=== PATIENT | female | born 1945 | race Caucasian/White ===

== ENCOUNTER 2017-06-17 06:09 | Emergency (ER) | payer OTHER, BC ==
[2017-06-17 06:17] VITALS: TEMP 98.2
[2017-06-17] MEDS ORDERED: NS 1,000 ML IV ONE (06:27)
[2017-06-17 06:33] LABS: PLATELET COUNT 227 10^3/uL (150-400)
--- NOTE | 2017-06-17 07:03 | EDPHY ---
H & P Stated Complaint: L FLANK PAIN Source: Patient, EMS Exam Limitations: No limitations - Personal History Current Tetanus/Diphtheria Vaccine: Unsure Current Tetanus Diphtheria and Acellular Pertussis (TDAP): Unsure - Medical/Surgical History Hx Asthma: No Hx Chronic Respiratory Disease: No Hx Diabetes: No Hx Cardiac Disease: No Hx Renal Disease: No Hx Cirrhosis: No Hx Alcoholism: No Hx HIV/AIDS: No Hx Splenectomy or Spleen Trauma: No - Social History Smoking Status: Never smoked Time Seen by Provider: 06/17/17 06:13 HPI/ROS: HPI The patient presents with left-sided flank pain that awoke her from sleep about 1 hour prior to presentation. It is achy in nature, does not radiate and initially was severe though is now subsiding. She was able to urinate, however developed nausea and diaphoresis with this. She has no prior history of similar symptoms. She denies any dysuria, hematuria that she is aware of. She is visiting from [place] and staying with a friend. She is brought in by ambulance.. REVIEW OF SYSTEMS Constitutional: No fever, no chills. Eyes: No discharge. ENT: No sore throat. Cardiovascular: No chest pain, no palpitations. Respiratory: No cough, no shortness of breath. Gastrointestinal: See HPI Genitourinary: No hematuria. Musculoskeletal: No back pain. Skin: No rashes. Neurological: No headache. PMHx: History of gallstones Soc Hx: Visiting from out of town, here in [place] for a meditation retreat PHYSICAL General Appearance: Alert, no distress Eyes: Pupils equal and round no pallor or injection ENT, Mouth: Mucous membranes moist Respiratory: There are no retractions, lungs are clear to auscultation Cardiovascular: Regular rate and rhythm Gastrointestinal: Abdomen is soft and non-tender, no masses, bowel sounds normal Back: There is left-sided CVA tenderness Neurological: A&O, moves all extremities Skin: Warm and dry, no rashes Musculoskeletal: Neck is supple non tender Extremities: symmetrical, full range of motion Psychiatric: Patient is oriented X 3, there is no agitation (Riguzzi,Shari) Constitutional: Initial Vital Signs Temperature (C) 36.8 C 06/17/17 06:11 Heart Rate 68 06/17/17 06:11 Respiratory Rate 16 06/17/17 06:11 Blood Pressure 180/93 H 06/17/17 06:11 O2 Sat (%) 93 06/17/17 06:11 O2 Delivery Mode Room Air Allergies/Adverse Reactions: No Known Allergies Allergy (Unverified 06/17/17 06:35) Home Medications: Medication Instructions Recorded Hydrocodone/APAP 5/325 [[place] 1 - 2 tab PO Q6H PRN #15 tab 06/17/17 5/325 (*)] Ondansetron Odt [Zofran Odt 4 mg 4 mg PO Q4 PRN #10 tab 06/17/17 (*)] Tamsulosin HCl 0.4 mg PO DAILY #10 cap 06/17/17 Medical Decision Making Differential Diagnosis: 71-year-old female brought in by ambulance for left-sided flank pain associated with nausea and diaphoresis which awoke her from sleep. On exam, she is hypertensive, otherwise well appearing. She does have left-sided CVA tenderness. Differential diagnosis includes ureterolithiasis, pyelonephritis, less likely AAA or muscle spasm. In the emergency department, IV line was established and patient was given IV fluids for presumed volume depletion. Labs were checked and did reveal hematuria and an elevated BUN. Because of the hematuria, I am suspicious for ureterolithiasis. I a have ordered a CT scan of the patient's abdomen pelvis to be performed. At change of shift at 7:00 a.m., the case is signed out to the oncoming provider Dr. Campuzano pending the patient's CT scan. I anticipate she will be able to discharge home if her pain is very minimal at this time. (Shari Anne) Other Provider: [address] Hagen pending CT scan of the abdomen pelvis. [address] Anne. Patient has a 10 mm left distal ureteral stone at the level S1 with moderate hydronephrosis. Discussed with the patient. She will follow up with Urology here tomorrow. I have started her on tamsulosin. She does not want strong narcotics. Will start her on hydrocodone while continuing to take ibuprofen. Return for worsening. (Juan Carlos Campuzano) - Data Points Laboratory Results: Laboratory Results 06/17/17 06:15 06/17/17 06:15 06/17/17 06/17/17 06/17/17 06:15 06:15 06:15 WBC 6.43 10^3/uL 10^3/uL (3.80-9.50) RBC 4.32 10^6/uL 10^6/uL (4.18-5.33) Hgb 13.4 g/dL g/dL (12.6-16.3) Hct 39.9 % % (38.0-47.0) MCV 92.4 fL fL (81.5-99.8) MCH 31.0 pg pg (27.9-34.1) MCHC 33.6 g/dL g/dL (32.4-36.7) RDW 13.4 % % (11.5-15.2) Plt Count 227 10^3/uL 10^3/uL (150-400) MPV 9.2 fL fL (8.7-11.7) Neut % (Auto) 44.5 % % (39.3-74.2) Lymph % (Auto) 42.5 % % (15.0-45.0) [place] % (Auto) 7.6 % % (4.5-13.0) Eos % (Auto) 4.0 % % (0.6-7.6) Baso % (Auto) 1.1 % % (0.3-1.7) Nucleat RBC Rel Count 0.0 % % (0.0-0.2) Absolute Neuts (auto) 2.86 10^3/uL 10^3/uL (1.70-6.50) Absolute Lymphs (auto) 2.73 10^3/uL 10^3/uL (1.00-3.00) Absolute Monos (auto) 0.49 10^3/uL 10^3/uL (0.30-0.80) Absolute Eos (auto) 0.26 10^3/uL 10^3/uL (0.03-0.40) Absolute Basos (auto) 0.07 10^3/uL 10^3/uL (0.02-0.10) Absolute Nucleated RBC 0.00 10^3/uL 10^3/uL (0-0.01) Immature Gran % 0.3 % % (0.0-1.1) Immature Gran # 0.02 10^3/uL 10^3/uL (0.00-0.10) Sodium 145 mEq/L H mEq/L (134-144) Potassium 4.0 mEq/L mEq/L (3.5-5.2) Chloride 108 mEq/L mEq/L (97-110) Carbon Dioxide 26 mEq/l mEq/l (22-31) Anion Gap 11 mEq/L mEq/L (8-16) BUN 25 mg/dL H mg/dL (7-23) Creatinine 0.9 mg/dL mg/dL (0.6-1.0) Estimated GFR > 60 Glucose 99 mg/dL mg/dL (70-100) Calcium 9.3 mg/dL mg/dL (8.5-10.4) Urine Color YELLOW Urine Appearance HAZY Urine pH 7.0 (5.0-7.5) Ur Specific [place] 1.015 (1.002-1.030) Urine Protein 1+ H (NEGATIVE) Urine Ketones NEGATIVE (NEGATIVE) Urine Blood 3+ H (NEGATIVE) Urine Nitrate NEGATIVE (NEGATIVE) Urine Bilirubin NEGATIVE (NEGATIVE) Urine Urobilinogen NEGATIVE EU EU (0.2-1.0) Ur Leukocyte Esterase NEGATIVE (NEGATIVE) Urine RBC 50-182 /hpf H /hpf (0-3) Urine WBC 5-10 /hpf H /hpf (0-3) Ur Epithelial Cells TRACE /lpf /lpf (NONE-1+) Urine Mucus TRACE /lpf /lpf (NONE-1+) Urine Glucose NEGATIVE (NEGATIVE) Medications Given: Discontinued Medications Sodium Chloride (Ns) 1,000 mls @ 0 mls/hr IV ONCE ONE; Wide Open PRN Reason: Protocol Stop: 06/17/17 06:28 Last Admin: 06/17/17 06:34 Dose: 1,000 mls Departure - Departure Disposition: Home, Routine, Self-Care Clinical Impression: Calculus of left kidney Condition: Good Instructions: Renal Colic (ED) Additional Instructions: Please make sure to drink plenty of fluids. You should take ibuprofen 600 mg every 8 hours as needed for pain. If the pain is more severe, you can take the pain medication I have provided you with. You can also take Zofran as needed for nausea. You should return to the emergency department if your worse in any way. Otherwise, you can follow up with a urologist at home. I have given you information for a local urologist if you would like to follow up sooner. Referrals: Kishan Machado MD [Medical Doctor] - As per Instructions Prescriptions: Hydrocodone/APAP 5/325 [[place] 5/325 (*)] 1 - 2 tab PO Q6H PRN #15 tab PRN Reason: Pain, Breakthrough Ondansetron Odt [Zofran Odt 4 mg (*)] 4 mg PO Q4 PRN #10 tab PRN Reason: Nausea/Vomiting, Can'T Take Po Tamsulosin HCl 0.4 mg PO DAILY #10 cap
[2017-06-17] MEDS ORDERED: HYDROCOD/APAP 5/325 PREPACK#6 BTL TAKEHOME ONE (07:28)
[2017-06-17] MEDS ORDERED: TAMSULOSIN HCL 0.4 MG CAP PO ONE (07:28)
[2017-06-17 07:52] VITALS: BP 137/89; PULSE 70; RESP 18; O2SAT 94
[2017-06-17] MEDS ORDERED: IBUPROFEN 600 MG TAB PO ONE (07:58)
== END 2017-06-17 08:18 | disposition home or self-care (01) ==
LOC: EDUNIT#
DX: N20.0 Calculus of kidney (principal); E86.9 Volume depletion, unspecified

== ENCOUNTER 2017-06-21 11:42 | Day surgery (SDC) | payer OTHER, BC ==
--- NOTE | 2017-06-21 11:00 | PDHPUP ---
History & Physical Update H&P update statement: This history and physical update is based on an assessment of the patient which was completed after admission or registration (within 24 hours), but prior to the surgery/procedure. H&P update: H&P reviewed & patient examined, no change in patient's condition since H&P completed
--- NOTE | 2017-06-21 11:19 | GHP ---
[f rep st] PREOP HISTORY AND PHYSICAL DATE OF ADMISSION: 06/21/2017 ADMISSION DIAGNOSIS: Left renal/ureteral calculus. This -[id number]-[id number] lady was seen in the em ergency room for evaluation of left flank pain and she was noted to have a 10 mm mid to distal ureter al stone with mild hydronephrosis. She had a creatinine of 0.9 and CBC with white blood count of 6. PAST MEDICAL HISTORY: Kidney stones, previous surgeries, ovarian removal, and hysterectomy. MEDICATIONS: [place], ondansetron, tamsulosin. ALLERGIES: None. FAMILY HISTORY: Positive for diabetes, heart disease, and kidney stones. SOCIAL HISTORY: Mild alcohol consumption. Former smoker. Immunizations up to date. REVIEW OF SYSTEMS: Negative cardiac, respiratory, GI, and endocrine. PHYSICAL EXAM ON ADMISSION: VITALS: Blood pressure in the office 167/87. HEENT: Head, ears, eyes, nose, and throat are normal. CHEST: Clear. HEART: Regular rate and rhythm. ABDOMEN: Normal wit h no organomegaly, rebound, or guarding. She had had a urinalysis that showed large red cells, positive white blood cells, negative nitrite. Reviewed her CAT scan. At the present time, she has a left ureteral calculus. She is admitted for a left ureteroscopic manipulation of the stone, laser lithotripsy. /[id number]/MODL
--- NOTE | 2017-06-21 11:19 | GHP ---
[f rep st] PREOP HISTORY AND PHYSICAL DATE OF ADMISSION: 06/21/2017 ADMISSION DIAGNOSIS: Left renal/ureteral calculus. This -[id number]-tcl lady was seen in the em ergency room for evaluation of left flank pain and she was noted to have a 10 mm mid to distal ureter al stone with mild hydronephrosis. She had a creatinine of 0.9 and CBC with white blood count of 6. PAST MEDICAL HISTORY: Kidney stones, previous surgeries, ovarian removal, and hysterectomy. MEDICATIONS: [place], ondansetron, tamsulosin. ALLERGIES: None. FAMILY HISTORY: Positive for diabetes, heart disease, and kidney stones. SOCIAL HISTORY: Mild alcohol consumption. Former smoker. Immunizations up to date. REVIEW OF SYSTEMS: Negative cardiac, respiratory, GI, and endocrine. PHYSICAL EXAM ON ADMISSION: VITALS: Blood pressure in the office 167/87. HEENT: Head, ears, eyes, nose, and throat are normal. CHEST: Clear. HEART: Regular rate and rhythm. ABDOMEN: Normal wit h no organomegaly, rebound, or guarding. She had had a urinalysis that showed large red cells, positive white blood cells, negative nitrite. Reviewed her CAT scan. At the present time, she has a left ureteral calculus. She is admitted for a left ureteroscopic manipulation of the stone, laser lithotripsy. /[id number]/MODL
[~2017-06-21 11:42] MED LIST: ceFAZolin 2 GM/SWFI 2 GM/20 ML SYR IVP ONE
[2017-06-21] MEDS ORDERED: LR 1,000 ML IV ONE (12:08)
[2017-06-21] MEDS ORDERED: LIDOCAINE 1% 2 ML INJ ID PRN (12:08)
--- NOTE | 2017-06-21 13:21 | PDANEPAE ---
ANE History of Present Illness Patient presents for L ureteroscopy with removal of stent ANE Past Medical History - Cardiovascular History Hx Hypertension: No Hx Arrhythmias: No Hx Chest Pain: No Hx Coronary Artery / Peripheral Vascular Disease: No Hx CHF / Valvular Disease: No Hx Palpitations: No - Pulmonary History Hx COPD: No Hx Asthma/Reactive Airway Disease: No Hx Recent Upper Respiratory Infection: No Hx Oxygen in Use at Home: No Hx Sleep Apnea: No Sleep Apnea Screening Result - Last Documented: Negative - Neurologic History Hx Cerebrovascular Accident: No Hx Seizures: No Hx Dementia: No - Endocrine History Hx Diabetes: No - Renal History Hx Renal Disorders: Yes Renal History Comment: current kidney stones - Liver History Hx Hepatic Disorders: No - Neurological & Psychiatric Hx Hx Neurological and Psychiatric Disorders: No - Cancer History Hx Cancer: Yes Cancer History Comment: skin ca on knee removed - Congenital Disorder History Hx Congenital Disorders: No - GI History Hx Gastrointestinal Disorders: No - Other Health History Other Health History: wears glasses - Chronic Pain History Chronic Pain: No - Surgical History Prior Surgeries: hysterectomy 2016 d/t prolapsed uterus ANE Review of Systems Review of Systems: - Exercise capacity METS (RN): 4 METS ANE Patient History - Allergies Allergies/Adverse Reactions: acetaminophen [From Vicodin] Allergy (Verified 06/20/17 16:52) Vomiting hydrocodone [From Vicodin] Allergy (Verified 06/20/17 16:52) Vomiting - Home Medications Home medications: home medication list seen and reviewed Home Medications: NK [No Known Home Meds] 06/20/17 [Last Taken Unknown] - NPO status NPO Status: no food or drink >8 hours NPO Since - Liquids (Date): 06/21/17 NPO Since - Liquids (Time): 10:00 NPO Since - Solids (Date): 06/21/17 NPO Since - Solids (Time): 03:30 - Anes Hx Anes Hx: no prior problems - Smoking Hx Smoking Status: Former smoker - Family Anes Hx Family Hx Anesthesia Complications: none ANE Labs/Vital Signs - Vital Signs Blood Pressure: 163/93 Heart Rate: 77 Respiratory Rate: 16 O2 Sat (%): 92 Height: 157.48 cm Weight: 63.503 kg ANE Physical Exam - Airway Neck exam: FROM Mallampati Score: Class 2 Mouth exam: normal dental/mouth exam - Pulmonary Pulmonary: no respiratory distress - Cardiovascular Cardiovascular: regular rate and rhythym - ASA Status ASA Status: I ANE Anesthesia Plan Anesthesia Plan: GA w LMA (RBA discussed)
[2017-06-21] MEDS ORDERED: fentaNYL 100 MCG/2 ML INJ ONE (13:28)
[2017-06-21] MEDS ORDERED: LIDOCAINE 2% JELLY 20 ML (UROJECT) ONE (13:28)
[2017-06-21] MEDS ORDERED: PROPOFOL 200 MG/20 ML VIAL ONE (13:28)
[2017-06-21] MEDS ORDERED: IOPAMIDOL (ISOVUE-300) 150 ML BTL ONE (13:29)
[2017-06-21] MEDS ORDERED: IOPAMIDOL (ISOVUE-M 300) 15 ML VIAL ONE (13:29)
[2017-06-21] MEDS ORDERED: LIDOCAINE 2% 5 ML SDV ONE (13:31)
[2017-06-21] MEDS ORDERED: DEXAMETHASONE 4 MG/ML VIAL ONE (13:48)
[2017-06-21] MEDS ORDERED: ONDANSETRON 4 MG/2 ML VIAL ONE (13:48)
--- NOTE | 2017-06-21 14:20 | POSTOPPROG ---
Post Op Note Date of Operation: 06/21/17 Surgeon: Kishan Machado Anesthesia: LMA Pre-op Diagnosis: left ureteral stone Procedure: ureteroscopy stent Inf/Abcess present in the surg proc area at time of surgery?: No EBL: Minimal Drains: Other (stent)
[2017-06-21] MEDS ORDERED: ONDANSETRON 4 MG/2 ML VIAL IVP PRN (14:30)
[2017-06-21] MEDS ORDERED: NALOXONE HCL 0.4 MG/ML INJ IVP PRN (14:30)
[2017-06-21] MEDS ORDERED: LR 500 ML IV PRN (14:30)
--- NOTE | 2017-06-21 14:31 | POSTANESTH ---
Post Anesthetic Evaluation Cardiovascular Status: Similar to Pre-Op Cond Respiratory Status: Normal, Stable Level of Consciousness/Mental Status: Can Participate in Eval Pain Control: Adequate, Prn Tx Ordered Nausea/Vomiting Control: Adequate, Prn Tx Ordered Complications Possibly Related to Anesthesia: None Noted (No pain, treating hypertension. No anesthesia complications.)
[2017-06-21] MEDS ORDERED: LABETALOL HCL 5 MG/ML 20 ML MDV ONE ×2 (14:42→14:43)
[2017-06-21] MEDS: LABETALOL HCL 50 MG/10 ML SYR IVP PRN ×2 (14:48→15:02)
--- NOTE | 2017-06-21 14:50 | GOP ---
[f rep st] OPERATIVE REPORT DATE OF OPERATION: 06/21/2017 SURGEON: Kishan Machado MD PREOPERATIVE DIAGNOSIS: Left ureteral calculus with obstruction. POSTOPERATIVE DIAGNOSIS: Left ureteral calculus with obstruction. PROCEDURE PERFORMED: Cystoscopy with retrograde ureteral pyelogram, placement of ureteral access she ath, holmium laser lithotripsy of stone, and placement of a 4.7-[place] multi-length stent under fluor oscopy. FINDINGS: DESCRIPTION OF PROCEDURE: The lady underwent general anesthesia, was prepped and draped in normal st erile fashion. She has a urethral caruncle, but was not pathologic. Bladder had no tumor, stones, f oreign bodies or diverticula. Left ureteral orifice was cannulated with a [place] catheter and retro grade revealed impacted stone. I was able to negotiate a guidewire up to the stone, used the intralu memo part of the ureteral access sheath to dilate the intramural ureter and then the semi-rigid scop e went up and fragmented the stone with 170 joules, and got it the size that I could extract the ston e. Then, after extracting it, scoped the patient and made sure the wire was up in the renal pelvis. She had a lot of inflammation from the impacted stone, so I elected to place a 4.7 multi-length sten t curled in the renal pelvis, curled in the bladder under fluoroscopy. No residual stones identified on the ureteroscopy, and the main trauma from the procedure appeared to be more just inflammation an d edema from the impacted stone. We left a string on the stent at her request and fixated at the abd ominal wall with Steri-Strips and benzoin, and then emptied her bladder of all fluid that was clear, and then placed Urojet in the urethra. Bimanual exam revealed no pelvic pathology. She will be disc harged home to have followup. I have recommended that she have an ultrasound 3 weeks after she has t he stent pulled, and [place]. /[id number]/MODL
[2017-06-21 14:51] VITALS: TEMP 97.9
[2017-06-21 15:35] VITALS: PULSE 66; RESP 14
[2017-06-21 16:41] VITALS: BP 155/86; O2SAT 90
== END 2017-06-21 16:40 | disposition home or self-care (01) ==
LOC: FSGY 11:42
PROVIDERS: ATTEND Specialist
PROC: BT171ZZ Fluoroscopy of Left Ureter using Low Osmolar Contrast (ICD-10-PCS; principal; 2017-06-21 13:00)
PROC: 0T9780Z Drainage of Left Ureter with Drainage Device, Via Natural or Artificial Opening Endoscopic (ICD-10-PCS; principal; 2017-06-21 13:00)
PROC: 0TC78ZZ Extirpation of Matter from Left Ureter, Via Natural or Artificial Opening Endoscopic (ICD-10-PCS; principal; 2017-06-21 13:00)
DX: N13.2 Hydronephrosis with renal and ureteral calculous obstruction (principal); Z87.442 Personal history of urinary calculi
CPT/HCPCS: 52356; 76001; C1758; C1769; C1894; 82365-90; C2625; J0690; J1100; J2405; J2704; J3010; J3490; Q9967